=== PATIENT | male | born 1985 | race Caucasian/White ===

== ENCOUNTER 2020-11-07 18:52 | Emergency (ER) | payer OTHER, BC, SELFPAY ==
--- NOTE | ~2020-11-07 | XR_ITS ---
EXAMINATION: XR chest 2V DATE: 11/07/2020 21:41 INDICATION: Chest and back pain TECHNIQUE: PA and lateral views of the chest are obtained. COMPARISON: 11/06/2011 FINDINGS: The lungs are free of acute opacities. There is no pleural effusion or pneumothorax. The ca rdiomediastinal silhouette is normal. The visualized bones and soft tissues are unremarkable. IMPRESSION: 1. No acute cardiopulmonary abnormality. Reviewed, dictated and finalized at location A. P SEPARATOR
--- NOTE | ~2020-11-07 | CT_ITS ---
EXAMINATION: CT brain wo con INDICATION: Headache COMPARISON: None TECHNIQUE: Standard unenhanced head CT. The dose-length product (DLP) was 605.33 mGy-cm. The mA was a djusted according to patient size. Iterative reconstruction technique was employed. FINDINGS: There is no intracranial hemorrhage, acute infarction, or abnormal mass lesion. The ventric les are normal. There is no abnormal mass effect or midline shift. The singh-white matter differentiat ion is normal. The basal cisterns are patent. The orbits are normal. The paranasal sinuses, mastoids and calvarium are normal. IMPRESSION: 1. No acute intracranial abnormality. Reviewed, dictated and finalized at location A. RVISOR EVAPORATOR
--- NOTE | ~2020-11-07 | CT_ITS ---
EXAMINATION: CT thoracic lumbar wo con DATE: 11/07/2020 21:40 INDICATION: Mid and lower back pain TECHNIQUE: Computed tomography (CT) of the thoracic and lumbar spine was performed without intravenou s contrast. The dose-length product (DLP) was 2095.60 mGy-cm. Iterative reconstruction was used. COMPARISON: None FINDINGS: Thoracic spine: There is no fracture, dislocation, or subluxation. The vertebral body heights, alignm ent, and intervertebral disc spaces are normal. The paravertebral soft tissues are unremarkable. Bone islands are noted in the left lamina of the T2 vertebral body and the left pedicle of the L1 vertebr al body. Lumbar spine: There is no fracture. There is severe loss of intervertebral disc space height at L5-S1 with 3 mm of retrolisthesis of L5 on S1. The vertebral body heights are normal. IMPRESSION: 1. Normal thoracic spine. 2. Severe spondylosis at L5-S1 without acute findings of the lumbar spine. Reviewed, dictated and finalized at location A. OP DEVELOPER
--- NOTE | ~2020-11-07 | CT_ITS ---
EXAMINATION: CT cervical spine wo con DATE: 11/07/2020 21:39 INDICATION: Neck pain TECHNIQUE: Computed tomography (CT) of the cervical spine was performed without intravenous contrast. The dose-length product (DLP) was 430.56 mGy-cm. Automated exposure control and iterative reconstruc tion technique were employed. COMPARISON: None FINDINGS: There is no fracture. The odontoid is intact. There is mild spondylosis at C3-4. The prever tebral soft tissues are normal. The vertebral body heights, alignment, and intervertebral disc spaces are normal. Heterotopic ossification posterior to the C7 spinous process could reflect prior injury. There is sclerosis in the lamina of the T2 vertebral body, consistent with a bone island. IMPRESSION: 1. No acute osseous abnormality. Reviewed, dictated and finalized at location A. MACEUTICAL SALES REPRESENTATIVE
[2020-11-07 20:20] VITALS: BP 121/82; PULSE 95; RESP 16; TEMP 36.1; O2SAT 100
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
== END 2020-11-08 00:15 | disposition home or self-care (01) ==
PROVIDERS: Emergency Provider Emergency Medicine; PCP Family Medicine
DX: S16.1XXA Strain of muscle, fascia and tendon at neck level, initial encounter (principal); S29.019A Strain of muscle and tendon of unspecified wall of thorax, initial encounter; V43.52XA Car driver injured in collision with other type car in traffic accident, initial encounter
CPT/HCPCS: 70450; 71046; 72125; 72128; 72131; 99284